=== PATIENT | male | born 1970 | race African-American/Black ===

== ENCOUNTER 2025-04-20 07:20 | Inpatient (IN) | payer MEDICAID ==
[~2025-04-20] VITALS: Ht 182.9 cm; Wt 103.9 kg
[2025-04-20 07:43] VITALS: O2SAT 100
[2025-04-20] MEDS ORDERED: ACETAMINOPHEN 325MG TABLET PO ONE (08:30)
[2025-04-20] MEDS ORDERED: ONDANSETRON 4MG ODT PO ONE (08:30)
[2025-04-20 08:45] LABS: BASOPHILS % 0.4 % (0.0-2.0); EOSINOPHILS % 1.2 % (0.0-5.0); HEMATOCRIT. 40.9 % (42.0-52.0); HEMOGLOBIN. 13.5 g/dL (14.0-18.0); LYMPHOCYTES % 32.4 % (20.0-50.0); MEAN PLATELET VOLUME 7.9 fl (7.4-10.4); MONOCYTES % 6.2 % (2.0-8.0); NEUTROPHILS % 59.8 % (40.0-76.0); PLATELET 207 x1000/uL (130-400); RED BLOOD CELL COUNT 4.77 mill/uL (4.7-6.1); RED CELL DISTRIBUTION WIDTH 13.7 % (11.6-14.6)
[2025-04-20 09:02] LABS: CREATININE 1.1 mg/dL (0.6-1.3); UREA NITROGEN BLOOD 14 mg/dL (9-23)
[2025-04-20 09:03] LABS: TROPONIN I HIGH SENSITIVITY < 4 ng/L (3.0-53)
[2025-04-20 09:04] LABS: ASPARTATE AMINOTRANSFERASE 24 IU/L (<34); BILIRUBIN DIRECT < 0.1 mg/dL (<=3.0); BILIRUBIN TOTAL 0.2 mg/dL (0.1-1.0)
[2025-04-20 09:05] LABS: PROTEIN TOTAL 7.4 g/dL (6.0-8.3)
[2025-04-20] MEDS ORDERED: ONDANSETRON HCL 4MG TABLET ONE (10:21)
[2025-04-20] MEDS: ACETAMINOPHEN 325MG TABLET PO NR (10:22)
[2025-04-20] MEDS: ONDANSETRON 4MG ODT PO NR (10:22)
[2025-04-20] MEDS ORDERED: PIPERACILLIN/TAZO 3.375G/50ML 50 ML IV ONE (10:31)
[2025-04-20] MEDS: PIPERACILLIN/TAZO 3.375G/50ML 50 ML IV STA (10:33)
[2025-04-20] MEDS ORDERED: KETOROLAC 30MG/ML VIAL ONE (11:12)
[2025-04-20] MEDS ORDERED: KETOROLAC 15MG/ML VIAL ONE (11:14)
[2025-04-20] MEDS ORDERED: ACETAMINOPHEN 325MG TABLET PO PRN (11:15)
[2025-04-20] MEDS ORDERED: HYDROCODONE/ACETAMINOPHEN 5/325MG TABLET PO PRN (11:15)
[2025-04-20] MEDS ORDERED: ONDANSETRON HCL 4MG/2ML INJ IV PRN (11:15)
[2025-04-20] MEDS: KETOROLAC 15MG/ML VIAL IV ONE (11:15)
[2025-04-20] MEDS ORDERED: MAGNESIUM/ALUMINUM HYDROXIDE/SIMETHICONE 30ML UDC PO PRN (11:15)
[2025-04-20] MEDS ORDERED: MORPHINE SULFATE 2 MG/ML INJ (NOT FOR IM USE) IV PRN (11:15)
[2025-04-20] MEDS ORDERED: ZOLPIDEM TARTRATE 5MG TABLET PO PRN (11:15)
[2025-04-20] MEDS ORDERED: NALOXONE HCL 0.4MG/ML VIAL IV PRN (11:45)
[2025-04-20] MEDS ORDERED: CEFTRIAXONE 1GM/50ML 50 ML IV SCH (12:00)
[2025-04-20] MEDS ORDERED: METRONIDAZOLE 500 MG PREMIX 100 ML IV SCH (12:00)
[2025-04-20 14:22] VITALS: BP 149/92; PULSE 65; RESP 20; TEMP 36.5292
[2025-04-20] MEDS: CEFTRIAXONE 1GM/50ML 50 ML IV SCH (15:43)
[2025-04-20] MEDS: SODIUM CHLORIDE 0.9% 1,000 ML IV SCH (15:43)
[2025-04-20 16:00] LABS: CLARITY URINE CLEAR (CLEAR); COLOR URINE YELLOW (YELLOW); GLUCOSE URINE NEGATIVE (NEGATIVE); KETONES URINE NEGATIVE (NEGATIVE); LEUKOCYTE ESTERASE URINE NEGATIVE (NEGATIVE); NITRITE URINE NEGATIVE (NEGATIVE); OCCULT BLOOD URINE TRACE (NEGATIVE); PH URINE 5.5 (4.5-8.0); PROTEIN URINE NEGATIVE (NEGATIVE); SPECIFIC GRAVITY URINE 1.021 (1.005-1.030); UROBILINOGEN URINE 0.2 E.U./dL (0.2-1.0)
[2025-04-20 16:02] LABS: BACTERIA URINE NONE SEEN; SQUAMOUS EPITHELIAL CELL URINE NONE SEEN /lpf (RARE/1+); WBC URINE 0-2 /hpf (0-2)
[2025-04-20 16:15] LABS: *AMPHETAMINES SCREEN URINE NEGATIVE (NEGATIVE); *BARBITURATES SCREEN URINE NEGATIVE (NEGATIVE); *BENZODIAZEPINES SCREEN URINE NEGATIVE (NEGATIVE)
[2025-04-20 16:16] LABS: *COCAINE SCREEN URINE NEGATIVE (NEGATIVE); CANNABINOID URINE SCREEN NEGATIVE (NEGATIVE); ECSTASY MDMA SCREEN URINE NEGATIVE (NEGATIVE); METHADONE URINE SCREEN NEGATIVE (NEGATIVE); OPIATES URINE SCREEN NEGATIVE (NEGATIVE); PHENCYCLIDINE URINE SCREEN NEGATIVE (NEGATIVE)
[2025-04-20] MEDS: METRONIDAZOLE 500 MG PREMIX 100 ML IV SCH (16:38)
[2025-04-20 20:00] VITALS: BP 146/99; PULSE 82; RESP 20; TEMP 36.4; O2SAT 100
[2025-04-20] MEDS: ENOXAPARIN 30MG/0.3ML SYR SUBCUT SCH (20:54)
[2025-04-21] VITALS: BP 123/88; PULSE 62; RESP 20; TEMP 36.3; O2SAT 100
[2025-04-21 04:00] VITALS: BP 134/64; PULSE 63; RESP 20; TEMP 36.4; O2SAT 100
[2025-04-21 08:00] VITALS: BP 130/83; PULSE 62; RESP 18; TEMP 36.6; O2SAT 99
[2025-04-21] MEDS: PANTOPRAZOLE SODIUM 40 MG/VIAL IV SCH (09:17)
[2025-04-21 09:28] LABS: BASOPHILS % 0.6 % (0.0-2.0); EOSINOPHILS % 3.8 % (0.0-5.0); HEMATOCRIT. 39.1 % (42.0-52.0); HEMOGLOBIN. 12.9 g/dL (14.0-18.0); LYMPHOCYTES % 53.3 % (20.0-50.0); MEAN PLATELET VOLUME 8.4 fl (7.4-10.4); MONOCYTES % 7.4 % (2.0-8.0); NEUTROPHILS % 34.9 % (40.0-76.0); PLATELET 186 x1000/uL (130-400); RED BLOOD CELL COUNT 4.54 mill/uL (4.7-6.1); RED CELL DISTRIBUTION WIDTH 13.8 % (11.6-14.6)
[2025-04-21 09:45] LABS: CREATININE 1.0 mg/dL (0.6-1.3); UREA NITROGEN BLOOD 9 mg/dL (9-23)
[2025-04-21 12:00] VITALS: BP 135/83; PULSE 62; RESP 18; TEMP 36.7; O2SAT 98
[2025-04-21 20:00] VITALS: BP 128/92; PULSE 68; RESP 18; TEMP 36.3; O2SAT 96
[2025-04-21 21:26] VITALS: BP 152/91; PULSE 63; RESP 18; TEMP 36.7; O2SAT 98
[2025-04-22] VITALS: BP 129/80; PULSE 69; RESP 18; TEMP 36.3; O2SAT 96
[2025-04-22 04:00] VITALS: BP 130/76; PULSE 62; RESP 18; TEMP 36.3; O2SAT 100
[2025-04-22 08:00] VITALS: BP 149/89; PULSE 62; RESP 16; TEMP 36.3; O2SAT 99
[2025-04-22 08:39] LABS: BASOPHILS % 0.7 % (0.0-2.0); EOSINOPHILS % 3.7 % (0.0-5.0); HEMATOCRIT. 40.6 % (42.0-52.0); HEMOGLOBIN. 13.3 g/dL (14.0-18.0); LYMPHOCYTES % 46.7 % (20.0-50.0); MONOCYTES % 6.6 % (2.0-8.0); NEUTROPHILS % 42.3 % (40.0-76.0); RED BLOOD CELL COUNT 4.66 mill/uL (4.7-6.1); RED CELL DISTRIBUTION WIDTH 14.0 % (11.6-14.6)
[2025-04-22 09:01] LABS: CREATININE 0.9 mg/dL (0.6-1.3); UREA NITROGEN BLOOD 5 mg/dL (9-23)
[2025-04-22 09:13] LABS: PLATELET 202 x1000/uL (130-400)
[2025-04-22 12:00] VITALS: BP 155/93; PULSE 64; PULSE 68; RESP 16; RESP 18; TEMP 36.6; O2SAT 99
[2025-04-22] MEDS: CLONIDINE 0.1MG TABLET PO PRN (13:03)
[2025-04-22 16:00] VITALS: BP 131/93; PULSE 60; RESP 16; TEMP 36.6; O2SAT 99
[2025-04-22 18:26] VITALS: BP 131/93; PULSE 66; RESP 20; TEMP 97.8
[2025-04-23] MEDS ORDERED: FAMOTIDINE 20MG/2ML VIAL IV SCH (09:00)
== END 2025-04-22 20:30 | disposition home or self-care (01) ==
LOC: ER 07:20 → 7EST 10:32 → EDBEDREQ 10:35 → EDBEDREQTM 10:35 → ENRESERV 11:56
PROVIDERS: ADMIT Internal Medicine; ATTEND Internal Medicine
DX: K80.00 Calculus of gallbladder with acute cholecystitis without obstruction (principal); F10.10 Alcohol abuse, uncomplicated; I10 Essential (primary) hypertension; K76.0 Fatty (change of) liver, not elsewhere classified; Z90.49 Acquired absence of other specified parts of digestive tract; Y90.9 Presence of alcohol in blood, level not specified
CPT/HCPCS: 36415; 71045; 74176; 76705; 78227; 80048; 80076; 80305; 81003; 84443; 84484; 85025; 86850; 86900; 93005; 93970; 99285; A9537; J0696; J1650; J1885; J2470; J2543; J3490; Q0162